=== PATIENT | female | born 1980 | race African-American/Black ===

== ENCOUNTER 2017-06-16 09:27 | Emergency (ER) | payer MEDICAID ==
[~2017-06-16] VITALS: Ht 167.6 cm; Wt 75.0 kg
[2017-06-16] MEDS ORDERED: ONDANSETRON HCL 4MG/2ML VIAL IV STA (09:44)
[2017-06-16] MEDS ORDERED: MORPHINE SULFATE 4 MG/ML CPJ (NOT FOR IM USE) IV STA (09:44)
[2017-06-16] MEDS ORDERED: SODIUM CHLORIDE 0.9% 1,000 ML IV ONE (09:44)
[2017-06-16] MEDS ORDERED: FAMOTIDINE 20MG/2ML VIAL IV STA (09:44)
[2017-06-16] MEDS ORDERED: MORPHINE SULFATE 2 MG/ML CPJ (NOT FOR IM USE) IV ONE (09:57)
[2017-06-16 10:05] LABS: BASOPHILS % 0.9 % (0.0-2.0); EOSINOPHILS % 3.4 % (0.0-5.0); HEMATOCRIT. 38.9 % (36.0-48.0); HEMOGLOBIN. 12.5 g/dL (12.0-16.0); LYMPHOCYTES % 22.9 % (20.0-50.0); MEAN CORPUSCULAR HEMOGLOBIN 28.9 pg (28.0-32.0); MEAN CORPUSCULAR VOLUME 89.8 fL (81.0-99.0); MEAN PLATELET VOLUME 8.1 fl (7.4-10.4); MONOCYTES % 9.2 % (2.0-8.0); NEUTROPHILS % 63.6 % (40.0-76.0); PLATELET 259 x1000/uL (130-400); RED BLOOD CELL COUNT 4.33 mill/uL (4.2-5.4); RED CELL DISTRIBUTION WIDTH 16.7 % (11.6-14.6)
[2017-06-16 10:17] LABS: CARBON DIOXIDE 30 mEq/L (21-32); CHLORIDE 97 mEq/L (98-107); TROPONIN I 0.05 ng/mL (0.00-0.04)
[2017-06-16 11:31] VITALS: BP 164/81
== END 2017-06-16 11:49 | disposition home or self-care (01) ==
LOC: ER 09:36
DX: R10.13 Epigastric pain (principal); R11.2 Nausea with vomiting, unspecified; I12.0 Hypertensive chronic kidney disease with stage 5 chronic kidney disease or end stage renal disease; E11.22 Type 2 diabetes mellitus with diabetic chronic kidney disease; N18.6 End stage renal disease; E78.00 Pure hypercholesterolemia, unspecified; Z99.2 Dependence on renal dialysis; Z88.8 Allergy status to other drugs, medicaments and biological substances
CPT/HCPCS: 36415; 71010; 76705; 80053; 83690; 84484; 84702; 85025; 85610; 93005; 96374; 96375; 99285; J2270; J2405; J3490; Z7610; J7030

== ENCOUNTER 2017-07-18 08:33 | Inpatient (IN) | payer MEDICAID, OTHER ==
[~2017-07-18] VITALS: Ht 165.1 cm; Wt 84.4 kg
[2017-07-18] MEDS ORDERED: MORPHINE SULFATE 4 MG/ML CPJ (NOT FOR IM USE) IV STA (09:20)
[2017-07-18] MEDS ORDERED: ASPIRIN 81MG TABLET PO STA (09:20)
[2017-07-18] MEDS ORDERED: ONDANSETRON HCL 4MG/2ML VIAL IV STA (09:20)
[2017-07-18 09:35] LABS: BASOPHILS % 0.7 % (0.0-2.0); EOSINOPHILS % 0.2 % (0.0-5.0); HEMATOCRIT. 36.2 % (36.0-48.0); LYMPHOCYTES % 11.9 % (20.0-50.0); MEAN CORPUSCULAR HEMOGLOBIN 30.1 pg (28.0-32.0); MEAN CORPUSCULAR VOLUME 91.2 fL (81.0-99.0); MEAN PLATELET VOLUME 8.1 fl (7.4-10.4); MONOCYTES % 2.3 % (2.0-8.0); NEUTROPHILS % 84.9 % (40.0-76.0); PLATELET 237 x1000/uL (130-400); RED BLOOD CELL COUNT 3.97 mill/uL (4.2-5.4)
[2017-07-18 09:45] LABS: PROTHROMBIN TIME 10.7 sec (9.4-11.6)
[2017-07-18 09:53] LABS: CARBON DIOXIDE 27 mEq/L (21-32); CHLORIDE 94 mEq/L (98-107); TROPONIN I < 0.02 ng/mL (0.00-0.04)
[2017-07-18] MEDS: NITROGLYCERIN 0.4MG TABLET SL SL PRN ×2 (09:58→10:22)
[2017-07-18] MEDS ORDERED: ONDANSETRON HCL 4MG/2ML VIAL IV ONE (12:45)
[2017-07-18] MEDS ORDERED: CLONIDINE 0.2MG TABLET PO ONE (14:00)
[2017-07-18] MEDS ORDERED: HYDRALAZINE 20MG/ML VIAL IV NR (16:30)
[2017-07-18] MEDS ORDERED: ONDANSETRON HCL 4MG/2ML VIAL IV PRN ×2 (16:30→19:30)
[2017-07-18 18:20] VITALS: BP 176/106
[2017-07-18] MEDS ORDERED: HYDRALAZINE 20MG/ML VIAL IV PRN (18:55)
[2017-07-18] MEDS ORDERED: TEMAZEPAM 15MG CAPSULE PO PRN (19:30)
[2017-07-18] MEDS ORDERED: SENNOSIDES/DOCUSATE SOD 8.6/50MG TABLET PO PRN (19:30)
[2017-07-18] MEDS ORDERED: DEXTROSE 50% WATER 50ML SYRINGE IV PRN (19:30)
[2017-07-18] MEDS ORDERED: MORPHINE SULFATE 2 MG/ML CPJ (NOT FOR IM USE) IV PRN (19:45)
[2017-07-18 20:00] VITALS: BP 142/73
[2017-07-18] MEDS: BLOOD SUGAR DIAGNOSTIC STRIP TEST SCH (20:08)
[2017-07-18] MEDS: CARVEDILOL 12.5MG TABLET PO SCH (20:26)
[2017-07-18] MEDS: INSULIN LISPRO 100 UNITS/ML SUBCUT SCH (20:31)
[2017-07-18] MEDS: VALACYCLOVIR HCL 500MG TABLET PO SCH (21:43)
[2017-07-18] MEDS: CLONIDINE 0.1MG TABLET PO SCH (21:43)
[2017-07-18] MEDS: METOCLOPRAMIDE HCL 10MG/2ML VIAL IV SCH (23:10)
[2017-07-19] VITALS (7 sets, daily range): BP systolic 100–125; BP diastolic 51–71
[2017-07-19] MEDS: METOCLOPRAMIDE HCL 10MG/2ML VIAL IV SCH ×3 (05:37→17:42)
[2017-07-19] MEDS: BLOOD SUGAR DIAGNOSTIC STRIP TEST SCH ×4 (06:10→21:47)
[2017-07-19] MEDS: CLONIDINE 0.1MG TABLET PO SCH ×3 (06:22→22:00)
[2017-07-19] MEDS: INSULIN LISPRO 100 UNITS/ML SUBCUT SCH ×4 (06:24→22:35)
[2017-07-19 07:18] LABS: BASOPHILS % 0.1 % (0.0-2.0); HEMATOCRIT. 33.2 % (36.0-48.0); HEMOGLOBIN. 10.9 g/dL (12.0-16.0); LYMPHOCYTES % 12.4 % (20.0-50.0); MEAN CORPUSCULAR HEMOGLOBIN 30.6 pg (28.0-32.0); MEAN CORPUSCULAR VOLUME 93.5 fL (81.0-99.0); MEAN PLATELET VOLUME 8.7 fl (7.4-10.4); MONOCYTES % 9.8 % (2.0-8.0); NEUTROPHILS % 77.7 % (40.0-76.0); PLATELET 232 x1000/uL (130-400); RED BLOOD CELL COUNT 3.55 mill/uL (4.2-5.4); RED CELL DISTRIBUTION WIDTH 15.9 % (11.6-14.6)
[2017-07-19 07:29] LABS: PHOSPHORUS 6.2 mg/dL (2.5-4.9); TROPONIN I 0.05 ng/mL (0.00-0.04)
[2017-07-19] MEDS ORDERED: SEVELAMER CARBONATE 800 MG TABLET PO SCH (07:40)
[2017-07-19] MEDS: CARVEDILOL 12.5MG TABLET PO SCH ×2 (08:53→21:00)
[2017-07-19] MEDS: VALACYCLOVIR HCL 500MG TABLET PO SCH ×2 (08:54→21:49)
[2017-07-19] MEDS ORDERED: PANTOPRAZOLE SODIUM 40 MG/VIAL IV SCH (09:00)
[2017-07-19] MEDS ORDERED: FUROSEMIDE 80MG TABLET PO SCH (09:00)
[2017-07-19] MEDS ORDERED: NIFEDIPINE XL 30MG TAB PO SCH (09:00)
[2017-07-19] MEDS ORDERED: FOLIC ACID/VITAMIN B COMP W-C TABLET PO SCH (09:00)
[2017-07-19] MEDS: SEVELAMER CARBONATE 800 MG TABLET PO SCH ×2 (12:39→17:27)
[2017-07-19] MEDS ORDERED: MORPHINE SULFATE 4 MG/ML CPJ (NOT FOR IM USE) IV PRN (17:30)
== END 2017-07-19 23:20 | disposition short-term general hospital (02) | DRG 391 ==
LOC: ER 08:33 → EDBEDREQ 11:43 → EDBEDREQTM 11:43 → 8WST 12:08 → EDBEDREQTM 12:09 → EDBEDREQ 12:09 → ENRESERV 16:49 → CANBEDREQ 16:54
PROVIDERS: ADMIT Internal Medicine Nephrology; ATTEND Internal Medicine Nephrology
DX: K21.9 Gastro-esophageal reflux disease without esophagitis (principal); N18.6 End stage renal disease; I13.2 Hypertensive heart and chronic kidney disease with heart failure and with stage 5 chronic kidney disease, or end stage renal disease; J84.9 Interstitial pulmonary disease, unspecified; E11.22 Type 2 diabetes mellitus with diabetic chronic kidney disease; I50.30 Unspecified diastolic (congestive) heart failure; K31.84 Gastroparesis; E11.43 Type 2 diabetes mellitus with diabetic autonomic (poly)neuropathy; E78.00 Pure hypercholesterolemia, unspecified; E78.5 Hyperlipidemia, unspecified; Z99.2 Dependence on renal dialysis; Z88.8 Allergy status to other drugs, medicaments and biological substances
CPT/HCPCS: 36415; 71045; 80048; 80053; 82962; 83690; 83735; 83880; 84100; 84484; 85025; 85610; 85730; 87804; 93005; 96374; 96375; 96376; 99285; C9113; J0360; J1815; J2270; J2405

== ENCOUNTER 2017-12-29 05:40 | Emergency (ER) | payer OTHER ==
[~2017-12-29] VITALS: Ht 170.2 cm; Wt 86.0 kg
[2017-12-29] MEDS ORDERED: SODIUM CHLORIDE 0.9% 1,000 ML IV ONE (06:22)
[2017-12-29] MEDS ORDERED: INSULIN REGULAR (HUMULIN R) UD 100 UNITS/ML SYR SUBCUT ONE (07:00)
[2017-12-29] MEDS ORDERED: INSULIN REGULAR (HUMULIN R) 300UNITS/3ML SUBCUT ONE (07:02)
[2017-12-29 07:19] LABS: BASOPHILS % 0.6 % (0.0-2.0); EOSINOPHILS % 0.3 % (0.0-5.0); HEMATOCRIT. 30.1 % (36.0-48.0); LYMPHOCYTES % 14.6 % (20.0-50.0); MEAN CORPUSCULAR HEMOGLOBIN 32.3 pg (28.0-32.0); MEAN CORPUSCULAR VOLUME 97.3 fL (81.0-99.0); MEAN PLATELET VOLUME 10.1 fl (7.4-10.4); MONOCYTES % 6.8 % (2.0-8.0); NEUTROPHILS % 77.7 % (40.0-76.0); PLATELET 147 x1000/uL (130-400); RED BLOOD CELL COUNT 3.09 mill/uL (4.2-5.4); RED CELL DISTRIBUTION WIDTH 16.2 % (11.6-14.6)
[2017-12-29 07:24] LABS: CHLORIDE 97 mEq/L (98-107)
[2017-12-29] MEDS ORDERED: LABETALOL 5MG/ML SYR 20 MG/4 ML SYRINGE IV ONE ×2 (07:30→09:15)
[2017-12-29 07:34] LABS: CREATINE KINASE MB FRACTION 3.6 ng/mL (0.5-3.6)
[2017-12-29 07:46] LABS: INR 1.1
[2017-12-29] MEDS ORDERED: CALCIUM CHLORIDE 1,000 MG in DEXT 5% WATER 90 ML IV ONE (08:00)
[2017-12-29] MEDS ORDERED: SODIUM POLYSTYRENE SULFONATE 15 G/60 ML BOT PO ONE (08:00)
[2017-12-29 12:45] VITALS: BP 196/95
== END 2017-12-29 13:15 | disposition short-term general hospital (02) ==
LOC: ER 05:40 → CANBEDREQ 15:44
DX: E11.22 Type 2 diabetes mellitus with diabetic chronic kidney disease (principal); E11.65 Type 2 diabetes mellitus with hyperglycemia; I12.0 Hypertensive chronic kidney disease with stage 5 chronic kidney disease or end stage renal disease; D63.1 Anemia in chronic kidney disease; N18.6 End stage renal disease; E87.5 Hyperkalemia; R51 Headache; Z99.2 Dependence on renal dialysis; Z79.84 Long term (current) use of oral hypoglycemic drugs; Z88.8 Allergy status to other drugs, medicaments and biological substances
CPT/HCPCS: 36415; 70450; 71045; 80048; 80053; 82553; 82962; 84484; 85025; 85610; 85730; 93005; 96361; 96365; 96372; 96375; 96376; 99291; J1815; J3490; J7030; Z7610; J7060